=== PATIENT | male | born 1950 | race Caucasian/White ===

== ENCOUNTER 2021-04-02 20:13 | Emergency (ER) | payer OTHER ==
[~2021-04-02] VITALS: Ht 182.9 cm; Wt 104.3 kg
[2021-04-02 20:18] VITALS: BP_SYST 109
--- NOTE | 2021-04-02 20:18 | NUR ---
Patient to ER bed 4 to gown for evaluation. Side rails up. Report given to JUAN DÍAZ.
--- NOTE | 2021-04-02 20:20 | NUR ---
DR. PAYAN AT BEDSIDE FOR EVALUATION.
[2021-04-02] MEDS ORDERED: KETOROLAC TROMETHAMINE 60 MG/2 ML VIAL IM ONE (20:30)
--- NOTE | 2021-04-02 20:39 | NUR ---
PORTABLE XRAY DONE AT BEDSIDE.
--- NOTE | 2021-04-02 20:40 | NUR ---
PATIENT AAOX4 BIB BLS FROM [facility] D/T ETOH INTOXICATION. PER EMS PT FELL AND HIT HIS HEAD. NO KO. DENIES ANY PAIN. DENIES ANY SOB/CP. CURRENTLY STATING 0/10 ON THE PAIN SCALE. PER PATIENT HE STATED HAVING ACOUPLE BEERS.
--- NOTE | 2021-04-02 20:59 | NUR ---
PT BACK FROM CT SCAN VIA [facility] BY RADIOLOGY STAFF. VSS.
[2021-04-02 21:54] LABS: BASOPHILS # (AUTO) 0.1 K/uL (0.0-0.2); BASOPHILS % (AUTO) 1.3 % (0.0-2.0); EOSINOPHILS # (AUTO) 0.5 K/uL (0.0-0.4); EOSINOPHILS % (AUTO) 6.2 % (0.0-4.0); HEMATOCRIT 43.8 % (36-54); HEMOGLOBIN 14.7 g/dL (14.0-18.0); LYMPHOCYTES # (AUTO) 2.2 K/uL (1.0-5.5); LYMPHOCYTES % (AUTO) 30.4 % (20.5-51.5); MEAN CORPUSCULAR HEMOGLOBIN 32 pg (27-31); MEAN CORPUSCULAR HGB CONC 33 % (32-36); MEAN CORPUSCULAR VOLUME 94 fL (79.0-98.0); MONOCYTES # (AUTO) 0.7 K/uL (0.0-1.0); MONOCYTES % (AUTO) 9.1 % (1.7-9.3); NEUTROPHILS # (AUTO) 3.9 K/uL (1.8-7.7); PLATELET COUNT (AUTO) 252 K/uL (130-430); RED BLOOD CELL COUNT(AUTO) 4.66 MIL/uL (4.2-6.2); RED CELL DISTRIBUTION WIDTH 15.3 % (9.0-15.0); WHITE BLOOD COUNT (AUTO) 7.3 K/uL (4.8-10.8)
--- NOTE | 2021-04-02 22:00 | NUR ---
Patient resting quietly. No acute distress noted. Vital signs within normal range.
[2021-04-02 22:08] LABS: ACETONE, SERUM NEGATIVE (NEGATIVE); ANION GAP 12 (5-15); CALCIUM 9.1 mg/dL (8.4-11.0); CHLORIDE 105 mmol/L (98-107); GLUCOSE 93 mg/dL (70-99); POTASSIUM 3.4 mmol/L (3.5-5.1); SODIUM SERUM 141 mmol/L (136-145); UREA NITROGEN, BLOOD 12 mg/dL (8-21)
[2021-04-02 22:15] LABS: ALANINE AMINOTRANSFERASE 27 U/L (12-78); ALBUMIN 3.4 g/dL (3.4-4.8); ALCOHOL, BLOOD 225 mg/dL (<10); AMYLASE 39 U/L (0-100); ASPARTATE AMINOTRANSFERASE 23 U/L (10-37); LIPASE 160 U/L (73-393); TOTAL BILIRUBIN 0.2 mg/dL (0.0-1.0)
[2021-04-02 22:16] LABS: INR 0.9 (0.80-1.20); PROTHROMBIN TIME 9.4 SECS (9.5-12.5)
--- NOTE | 2021-04-02 23:50 | NUR ---
LAB AT BEDSIDE FOR 2ND LACTIC DRAW.
--- NOTE | 2021-04-03 02:00 | NUR ---
SPOKE TO YASH (FRIEND) WHO LIVES WITH PT. STATED HE WILL BE ABLE TO PICK HIM UP IN ABOUT 10 MINUTES.
--- NOTE | 2021-04-03 02:30 | NUR ---
PT AMBULATED WITH MD [place]. GAIT STEADY. MEDICALLY CLEARED TO GO HOME.
[2021-04-03 02:45] VITALS: BP_SYST 128
--- NOTE | 2021-04-03 02:46 | NUR ---
Patient given written and verbal discharge instructions and verbalizes understanding. DR. DENYS BARCENAS MD discussed with patient the results and treatment provided. Patient in stable condition. ID arm band removed. Patient educated on pain management and to follow up with PMD. Pain Scale 0/10 Opportunity for questions provided and answered. Medication side effect fact sheet provided.
== END 2021-04-03 02:46 | disposition home or self-care (01) ==
LOC: SED 20:13
DX: S00.03XA Contusion of scalp, initial encounter (principal); F10.129 Alcohol abuse with intoxication, unspecified; Z88.0 Allergy status to penicillin; W18.39XA Other fall on same level, initial encounter; Y93.89 Activity, other specified; Y92.89 Other specified places as the place of occurrence of the external cause; Y99.8 Other external cause status
CPT/HCPCS: 36415; 70450; 71045; 76376; 80053; 82009; 82140; 82150; 83605; 83690; 84484; 85025; 85610; 85730; 99284; G0482

== ENCOUNTER 2023-07-10 20:04 | Emergency (ER) | payer OTHER ==
[~2023-07-10] VITALS: Ht 182.9 cm; Wt 127.0 kg
[2023-07-10 20:17] VITALS: BP_SYST 152; PULSE 80; RESP 16; TEMP 98.8; O2SAT 98
[2023-07-10 20:57] LABS: BASOPHILS # (AUTO) 0.1 K/uL (0.0-0.2); BASOPHILS % (AUTO) 1.2 % (0.0-2.0); EOSINOPHILS # (AUTO) 0.2 K/uL (0.0-0.4); EOSINOPHILS % (AUTO) 2.2 % (0.0-4.0); HEMATOCRIT 46.7 % (36-54); LYMPHOCYTES # (AUTO) 1.6 K/uL (1.0-5.5); LYMPHOCYTES % (AUTO) 19.8 % (20.5-51.5); MEAN CORPUSCULAR HEMOGLOBIN 33 pg (27-31); MEAN CORPUSCULAR HGB CONC 34 % (32-36); MEAN CORPUSCULAR VOLUME 95 fL (79.0-98.0); MONOCYTES # (AUTO) 0.8 K/uL (0.0-1.0); MONOCYTES % (AUTO) 10.4 % (1.7-9.3); NEUTROPHILS # (AUTO) 5.3 K/uL (1.8-7.7); NEUTROPHILS % (AUTO) 66.4 % (40.0-70.0); PLATELET COUNT (AUTO) 279 K/uL (130-430); RED BLOOD CELL COUNT(AUTO) 4.93 MIL/uL (4.2-6.2); WHITE BLOOD COUNT (AUTO) 7.9 K/uL (4.8-10.8)
[2023-07-10] MEDS ORDERED: THIAMINE HCL 200 MG/2 ML VIAL ONE (21:01)
[2023-07-10] MEDS: MAGNESIUM SULFATE 50 ML IV ONE (21:10)
[2023-07-10 21:28] LABS: CALCIUM 9.7 mg/dL (8.4-11.0); CREATININE 0.78 mg/dL (0.55-1.30); POTASSIUM 3.5 mmol/L (3.5-5.1)
[2023-07-10 21:35] LABS: PHOSPHORUS 3.2 mg/dL (2.7-4.5)
[2023-07-10] MEDS: DIPHTH,PERTUSS(ACELL),TET VAC 0.5 ML VIAL (Tdap) I.M. ONE (21:41)
[2023-07-10] MEDS: FOLIC ACID 5 MG/ML VIAL IV ONE (21:41)
[2023-07-10] MEDS: THIAMINE HCL 100 MG in NS 50 ML IV ONE (21:42)
[2023-07-10] MEDS: BACITRACIN 1 GM OINT TP ONE (21:42)
[2023-07-10] MEDS: NACL 0.9% 1,000 ML IV ONE (21:42)
[2023-07-11 05:33] VITALS: BP_SYST 141; PULSE 75; RESP 18; TEMP 98.6; O2SAT 98
== END 2023-07-11 05:20 | disposition home or self-care (01) ==
LOC: SED 20:04
DX: S00.03XA Contusion of scalp, initial encounter (principal); F10.129 Alcohol abuse with intoxication, unspecified; E78.5 Hyperlipidemia, unspecified; Z88.0 Allergy status to penicillin; Z79.899 Other long term (current) drug therapy; W01.0XXA Fall on same level from slipping, tripping and stumbling without subsequent striking against object, initial encounter; Y93.89 Activity, other specified; Y92.89 Other specified places as the place of occurrence of the external cause; Y99.8 Other external cause status; Y90.6 Blood alcohol level of 120-199 mg/100 ml
CPT/HCPCS: 99284; 70450; 96365; 96366; 80048; 83690; 83735; 84100; 85025; 36415; 76376; 90715; 96368; 90471; 70480; G0482; J3490; J3411; J3475